=== PATIENT | male | born 1975 | race Caucasian/White ===

== ENCOUNTER → 2020-05-27 13:41 | Outpatient (CLI) | payer BC | END | disposition home or self-care (01) | LOC: D.CT 05-23 13:30 | PROVIDERS: ATTEND Nurse Practitioner | DX: R10.32 Left lower quadrant pain (principal) ==

== ENCOUNTER 2020-07-01 06:20 | Day surgery (SDC) | payer MEDICARE ==
[~2020-07-01] VITALS: Ht 177.8 cm; Wt 117.3 kg
[2020-07-01] MEDS ORDERED: SYNTHROID50 MCG PO (07:01)
[2020-07-01] MEDS ORDERED: ANDROGEL5 GM IM (07:02)
[2020-07-01 07:13] VITALS: BP 115/66; Ht 177.8 cm; Wt 117.3 kg
--- NOTE | 2020-07-01 14:37 | NUR ---
[address] TRUJILLO[address] Omrai ADAMS R.N. 1120 DRESSED, AWAKE & ALERT. PROVIDED WITH D/C INFORMATION INCLUDING: MED REC, RTC APPT., POST ENDOSCOPY D/C INSTRUCTIONS. PT VOICED UNDERSTANDING. TO PRIVATE CAR PER WHEELCHAIR BY THIS NURSE. HOME WITH . Khadijah ADAMS R.N.
--- NOTE | 2020-07-01 14:52 | OP ---
PATIENT NAME: CAM CRUZ MEDICAL RECORD: [id number] :73 LOCATION:D.OPS ADMISSION DATE: SURGEON: VESTA TRUJILLO MD DATE OF OPERATION: 07/01/2020 PREOPERATIVE DIAGNOSES: 1. History of diverticulitis. 2. Hematochezia. POSTOPERATIVE DIAGNOSES: 1. History of diverticulitis. 2. Hematochezia with inflamed internal hemorrhoids. 3. One semipedunculated polyp, which was a 1.0 cm polyp and appeared adenomatous. 4. Pandiverticulosis. PROCEDURES: 1. Total colonoscopy to cecum. 2. Hot biopsy forceps polypectomy x1. SURGEON: Vesta Trujillo MD NIGHT COURT MAGISTRATE: None. BLOOD LOSS: Minimal. ANESTHESIA: IV sedation. COMPLICATIONS: None. The risks, possible complications, and alternatives of the procedure were explained to the patient. He elects to proceed. The discussion specifically included, but was not limited to, bleeding requiring emergency reoperation, infection, intestinal perforation. DESCRIPTION OF PROCEDURE: The patient was placed in the Street position. A digital rectal examination was performed. A colonoscope was inserted through the anus. It was easily advanced to the cecum. The prep was adequate. I slowly withdrew the endoscope. I slowly withdrew the endoscope. Normal imaging and narrow band imaging were utilized. I dragged the folds. The pullback was greater than a 13-minute pullback. A hot biopsy forceps polypectomy was performed. A retroflex view was obtained in the rectum. I then unretroflexed the scope and removed it under direct vision. I will see the patient in my office in 2 to 3 weeks. TRANSINT:[id number] Voice Confirmation ID: [id number] DOCUMENT ID: [id number] cc: LASHAUN Dowell [facility] [phone] OPERATIVE REPORT [id number] CAM CRUZ VESTA TRUJILLO MD at 1452 CC: ANYA WILKS [phone] DICTATION DATE: 07/01/20 1030 [facility] COORDINATOR: 07/01/20 1047 [facility] 07/01/20 [place] [address]
== END 2020-07-01 11:20 | disposition home or self-care (01) ==
LOC: D.OPS 06:20
PROVIDERS: ATTEND Surgery
DX: K92.1 Melena (principal); Z87.19 Personal history of other diseases of the digestive system; K64.8 Other hemorrhoids; K63.5 Polyp of colon; K57.30 Diverticulosis of large intestine without perforation or abscess without bleeding; R10.32 Left lower quadrant pain